=== PATIENT | female | born 1995 | race American Indian/Alaskan Native ===

== ENCOUNTER 2017-09-02 23:08 | Emergency (ER) | payer SELFPAY ==
[2017-09-03] MEDS ORDERED: TYLENOL PO ONE (00:13)
[2017-09-03] MEDS ORDERED: NACL 0.9% 1000 ML 1,000 ML IV ONE (00:13)
[2017-09-03] MEDS ORDERED: KEPPRA 1,000 MG/NS 0.75% 100ML 1,000 MG/100 ML BAG IV ONE (00:13)
[2017-09-03 00:31] LABS: Hemoglobin 12.8 gm/dl (10.1-14.3); Mean Corpuscular HGB Conc 33 % (30-34); Mean Corpuscular Hemoglobin 30 pg (28-32); Mean Corpuscular Volume 92 fl (79-97); Platelet Count 171 K/mm3 (140-440); Red Blood Count 4.26 M/mm3 (3.65-5.03); Red Cell Distribution Width 13.7 % (13.2-15.2)
[2017-09-03 00:54] LABS: BUN/Creatinine Ratio 13; Blood Urea Nitrogen 8 mg/dL (7-17); Calcium 8.2 mg/dL (8.4-10.2); Hemolysis Index 4
--- NOTE | 2017-09-03 04:12 | Emergency Department Report ---
HPI - General Chief Complaint: Seizure Time Seen by Provider: 09/02/17 23:15 - HPI HPI: The patient's 22-year-old female presents for evaluation of seizure and headache. The patient reports seizure-like activity multiple times over the past 12 hours, constant for seconds, moderate to severe. She states that she has experienced headache for the past one to 2 hours, aching in quality, mild in severity, constant is onset. The patient denies fever, head injury, neck pain, neck stiffness, vision or hearing changes, smell or taste changes, paresthesias, facial drooping, slurred speech, seizure-like activity, urine or bowel incontinence or retention, or other focal neurological deficit. ED Past Medical Hx - Past Medical History Previous Medical History?: No Hx Seizures: Yes - Surgical History Past Surgical History?: No - Social History Smoking Status: Current Some Day Smoker Substance Use Type: Marijuana - Medications Home Medications: Home Medications Medication Instructions Recorded Confirmed Last Taken Type levETIRAcetam [Keppra TAB] 500 mg PO BID #60 tablet 09/03/17 Unknown Rx ED Review of Systems ROS: Stated complaint: SEIZURE Other details as noted in HPI Constitutional: denies: fever ENT: denies: throat or neck pain Respiratory: denies: cough, shortness of breath Cardiovascular: denies: chest pain Endocrine: denies unexplained weight loss or gain Gastrointestinal: denies: abdominal pain, nausea Genitourinary: denies: dysuria Musculoskeletal: denies: leg swelling Skin: denies: rash Neurological: reports seizure and headache Hematological/Lymphatic: denies: easy bleeding or easy bruising Psych: denies sadness or hopelessness Physical Exam - Physical Exam Vital Signs: Vital Signs 09/02/17 23:45 Temperature 97.7 F Pulse Rate 74 Respiratory 20 Rate Blood Pressure 116/71 O2 Sat by Pulse 100 Oximetry Physical Exam: General: well-nourished, well-developed, no acute distress Head: Normocephalic, atraumatic Eyes: normal sclera ENT: Mucous membranes are pink and moist Neck: trachea midline, neck supple, No neck stiffness, no cervical adenopathy Respiratory: Breath sounds equal bilaterally, no wheezing, rales, or rhonchi Cardio: S1 and S2 present, no murmurs, rubs, gallops, capillary refill is brisk Abdomen: Normoactive bowel sounds, soft abdomen, no rigidity, no guarding or rebound tenderness Musc: No pitting edema Skin: No rash Neuro: alert oriented x4, normal cognition, speech normal, PERRL, EOM intact, no facial drooping, no uvula or tongue deviation on protrusion, no deficit with rotation of neck or shoulder shrug, no obvious gross motor deficit in the upper or lower extremities with flexion or extension at the shoulder, elbow, wrist, hip, knee, or ankle bilaterally, no obvious gross sensation deficit to crude touch or 2 pt discrimination, 2+ symmetric reflexes on DTR testing, no coordination deficit with [id number] or [id number] testing, Babinski downgoing Psych: Normal affect ED Course Vital Signs 09/02/17 23:45 Temperature 97.7 F Pulse Rate 74 Respiratory 20 Rate Blood Pressure 116/71 O2 Sat by Pulse 100 Oximetry ED Medical Decision Making - Lab Data Result diagrams: 09/03/17 00:20 09/03/17 00:20 - Medical Decision Making The patient was seen and examined by myself. The patient is placed on a cardiac sonographer and continuous pulse ox. On initial evaluation, the patient was found to be in no distress. Evaluation orders were placed. The patient is given pain medicine. Lab results are unremarkable. The patient was given Keppra for treatment of seizure. The patient was monitored in the emergency department for greater than 4 hours without any seizure-like activity in the emergency department. The patient was reevaluated and reported that their symptoms were markedly improved. The patient is stable for discharge with outpatient follow-up. The patient is given follow-up and return instructions. The patient expressed understanding and agreed with the plan. The patient is discharged in stable condition. Critical care attestation.: If time is entered above; I have spent that time in minutes in the direct care of this critically ill patient, excluding procedure time. ED Disposition Clinical Impression: Seizure disorder, Acute non intractable tension-type headache Disposition: DC-01 TO HOME OR SELFCARE Is pt being admited?: No Does the pt Need Aspirin: No Condition: Stable Instructions: Migraine Headache (ED), Epilepsy (ED), Recurrent Seizures Adult ( ED) Prescriptions: levETIRAcetam [Keppra TAB] 500 mg PO BID #60 tablet Referrals: KARENA POOL MD [Primary Care Provider] - 3-5 Days SHRUTHI FLEMING MD [Staff Physician] - 3-5 Days Forms: Work/School Release Form(ED) Time of Disposition: 04:12
[2017-09-03 05:18] VITALS: BP 94/47
== END 2017-09-03 05:19 | disposition home or self-care (01) ==
LOC: ED 23:08
DX: G40.909 Epilepsy, unspecified, not intractable, without status epilepticus (principal); G44.209 Tension-type headache, unspecified, not intractable; F17.200 Nicotine dependence, unspecified, uncomplicated
CPT/HCPCS: 36415; 80048; 82550; 84703; 85027; 96365; 99283; J1953; J7030

== ENCOUNTER 2017-10-01 21:43 | Emergency (ER) | payer SELFPAY ==
[2017-10-01] MEDS ORDERED: ATIVAN IV ONE (21:51)
[2017-10-01] MEDS ORDERED: KEPPRA 500 MG in D5W 100 ML IV ONE (21:51)
--- NOTE | 2017-10-01 21:56 | Emergency Department Report ---
ED Seizure HPI - General Stated Complaint: SEIZURE Time Seen by Provider: 10/01/17 21:50 Source: EMS - History of Present Illness Initial Comments: Patient is 22 years old female history of seizure on Keppra. Patient brought to the ER via EMS after one episode of seizure that continuing the ER. Patient is still post ictal so unable to get more information at this moment. MD Complaint: seizure -: Sudden Description of Episode: tonic-clonic movement, post-event confusion Seizure History: known seizure disorder - Related Data Previous Rx's Medication Instructions Recorded Last Taken Type levETIRAcetam [Keppra TAB] 500 mg PO BID #60 tablet 09/03/17 Unknown Rx Allergies Allergy/AdvReac Type Severity Reaction Status Date / Time No Known Allergies Allergy Unverified 10/01/17 21:55 ED Review of Systems ROS: Stated complaint: SEIZURE Other details as noted in HPI Comment: Unobtainable due to pts medical conditions ED Past Medical Hx - Past Medical History Hx Seizures: Yes - Social History Smoking Status: Current Some Day Smoker Substance Use Type: Marijuana - Medications Home Medications: Home Medications Medication Instructions Recorded Confirmed Last Taken Type levETIRAcetam [Keppra TAB] 500 mg PO BID #60 tablet 09/03/17 Unknown Rx ED Physical Exam - General General appearance: alert, other (actively seizing) - Head Head exam: Present: atraumatic, normocephalic, normal inspection - Eye Eye exam: Present: normal appearance, PERRL - ENT ENT exam: Present: normal exam, normal orophraynx, mucous membranes moist - Neck Neck exam: Present: normal inspection, full ROM. Absent: tenderness, meningismus, lymphadenopathy, thyromegaly - Respiratory Respiratory exam: Present: normal lung sounds bilaterally. Absent: respiratory distress, wheezes, rales, rhonchi, stridor, accessory muscle use, decreased breath sounds, prolonged expiratory - Cardiovascular Cardiovascular Exam: Present: regular rate, normal rhythm, normal heart sounds - GI/Abdominal GI/Abdominal exam: Present: soft, normal bowel sounds. Absent: distended, tenderness, guarding, rebound, rigid, organomegaly, mass, bruit, pulsatile mass , hernia - Extremities Exam Extremities exam: Present: normal inspection, full ROM, normal capillary refill - Back Exam Back exam: Present: normal inspection, full ROM. Absent: tenderness, CVA tenderness (R), CVA tenderness (L), muscle spasm, paraspinal tenderness, vertebral tenderness - Neurological Exam Neurological exam: Present: alert, oriented X3, CN II-XII intact, normal gait - Skin Skin exam: Present: warm, intact, normal color ED Course Vital Signs 10/01/17 21:55 Temperature 98.4 F Pulse Rate 86 Respiratory 18 Rate Blood Pressure 114/68 O2 Sat by Pulse 99 Oximetry - Reevaluation(s) Reevaluation #1: 10/02/17 04:10 Patient observed in the ER. No evidence of seizure activity after Ativan. Patient receive 500 mg of Keppra intravenously. She told me that she run out of her Keppra medicine and she'll need a prescription. ED Medical Decision Making - Lab Data Result diagrams: 10/01/17 21:55 10/01/17 21:55 Critical care attestation.: If time is entered above; I have spent that time in minutes in the direct care of this critically ill patient, excluding procedure time. ED Disposition Clinical Impression: Seizure Disposition: DC-01 TO HOME OR SELFCARE Is pt being admited?: No Condition: Stable Instructions: Recurrent Seizures Adult (ED) Referrals: PRIMARY CARE, [Primary Care Provider] - 3-5 Days
[2017-10-01] MEDS ORDERED: KEPPRA 500 MG/NS 0.82% 100 ML 500 MG/100 ML BAG IV ONE (22:00)
[2017-10-01 22:09] LABS: Basophils % (Auto) 0.5 % (0.0-1.8); Eosinophils # (Auto) 0.2 K/mm3 (0.0-0.4); Eosinophils % (Auto) 2.2 % (0.0-4.3); Lymphocytes # (Auto) 2.8 K/mm3 (1.2-5.4); Lymphocytes % (Auto) 31.8 % (13.4-35.0); Mean Corpuscular HGB Conc 33 % (30-34); Mean Corpuscular Hemoglobin 30 pg (28-32); Mean Corpuscular Volume 92 fl (79-97); Monocytes # (Auto) 0.7 K/mm3 (0.0-0.8); Platelet Count 169 K/mm3 (140-440); Red Blood Count 4.26 M/mm3 (3.65-5.03); Red Cell Distribution Width 13.2 % (13.2-15.2)
[2017-10-01 22:25] LABS: Alanine Aminotransferase 9 units/L (7-56); Albumin 3.7 g/dL (3.9-5); BUN/Creatinine Ratio 15; Blood Urea Nitrogen 12 mg/dL (7-17); Hemolysis Index 5
[2017-10-02 05:03] VITALS: BP 114/65
== END 2017-10-02 05:05 | disposition home or self-care (01) ==
LOC: ED 21:43
DX: G40.909 Epilepsy, unspecified, not intractable, without status epilepticus (principal); F17.200 Nicotine dependence, unspecified, uncomplicated; F12.10 Cannabis abuse, uncomplicated
CPT/HCPCS: 36415; 80053; 85025; 96374; 96375; 99284; J1953; J2060

== ENCOUNTER 2019-06-06 11:17 | Emergency (ER) | payer SELFPAY ==
[2019-06-06 11:31] VITALS: BP 143/64
--- NOTE | 2019-06-06 11:33 | Event Note ---
ED Screening Note ED Screening Note: states that the last couple of days she has had a nosebleed states it only last after a few minutes states it starts bleeding after blowing the nose states she has had rhinorrhea for the last few days no fever, vomiting, blood in the stool PMHx epilepsy on keppra allergy: motrin, ibuprofen, benadryl
--- NOTE | 2019-06-06 11:34 | Emergency Department Report ---
Chief Complaint: Nosebleed Stated Complaint: NOSE BLEED Time Seen by Provider: 06/06/19 11:28 - HPI History of Present Illness: pt states that the last couple of days she has had a nosebleed intermittently. she states it only last after a few minutes. she states it starts bleeding after blowing the nose. pt states she has had rhinorrhea for the last few days and her nose has become dry. no fever, vomiting, blood in the stool. PMHx epilepsy on keppra. allergy: motrin, ibuprofen, benadryl VSS on exam: non toxic appearing, no acute distress small amount of dried blood in the left naris, normal right naris no active bleeding normal oropharynx no blood in the oropharynx pt is presenting with a non medical emergency at this time medical screening examination performed and there is no threat to life or limb at this time will refer pt to a primary care provider advised pt to please use a nasal wash over the counter then use flonase nasal spray over the counter once a day. please avoid blowing your nose forcefully. may use a humidifier. please follow up with a primary care doctor in the next 2- 3 days for reexamination. return to the emergency room for any new or worsening symptoms - Exam Vital Signs: Vital Signs 06/06/19 11:28 Temperature 98.6 F Pulse Rate 66 Respiratory 16 Rate Blood Pressure 143/64 O2 Sat by Pulse 100 Oximetry MSE screening note: Focused history and physical exam performed. ED Disposition for MSE Clinical Impression: Epistaxis Disposition: Z-07 MED SCREENING EXAM-LEFT Is pt being admited?: No Does the pt Need Aspirin: No Condition: Stable Instructions: Epistaxis (ED) Additional Instructions: please use a nasal wash over the counter then use flonase nasal spray over the counter once a day. please avoid blowing your nose forcefully. may use a humidifier. please follow up with a primary care doctor in the next 2-3 days for reexamination. return to the emergency room for any new or worsening symptoms Referrals: ARIADNA CHOI MD [Staff Physician] - 2-3 Days [facility] [Outside] - 2-3 Days [facility] [place] [facility] [place] - 2-3 Days Time of Disposition: 11:44 Print Language: MONGOLIAN
== END 2019-06-06 12:36 | disposition left against medical advice (07) ==
LOC: ED 11:17
DX: R04.0 Epistaxis (principal); J34.89 Other specified disorders of nose and nasal sinuses
CPT/HCPCS: 99281